=== PATIENT | male | born 1940 | race Caucasian/White ===

== ENCOUNTER → 2017-04-26 | Day surgery (SDC) | payer OTHER ==
[~2017-04-26] MED LIST: TRIAMCINOLONE ACETONIDE 40 MG/ML SUS ONE
[2017-04-26 14:16] VITALS: O2SAT 97
[2017-04-26 15:10] VITALS: BP 142/84; PULSE 70; RESP 18; TEMP 98
== END | disposition home or self-care (01) | DRG 552 ==
LOC: SURG 13:58
PROVIDERS: ATTEND Nurse Anesthetist, Certified Registered
DX: M54.16 Radiculopathy, lumbar region (principal)
CPT/HCPCS: J3300